=== PATIENT | male | born 1965 | race Caucasian/White ===

== ENCOUNTER 2022-12-04 06:31 | Day surgery (SDC) | payer OTHER ==
[2022-12-04] MEDS ORDERED: Lactated Ringers 1,000 ML IV SCH (07:15)
[2022-12-04] MEDS ORDERED: Midazolam 1 MG/ML 2 ML SDV ONE (07:29)
[2022-12-04] MEDS ORDERED: fentaNYL 50 MCG/ML SDV ONE (07:29)
[2022-12-04] MEDS ORDERED: Propofol 200 MG/20 ML SDV ONE (07:29)
== END 2022-12-04 09:01 | disposition home or self-care (01) ==
LOC: JP.SDS 06:31
PROVIDERS: ATTEND Family Medicine
DX: Z12.11 Encounter for screening for malignant neoplasm of colon (principal); K62.1 Rectal polyp; E78.5 Hyperlipidemia, unspecified; R73.01 Impaired fasting glucose; Z98.890 Other specified postprocedural states
CPT/HCPCS: 45380; J2250; J2704; J3010; J7120